=== PATIENT | male | born 1995 | race Two or more races ===

== ENCOUNTER 2017-04-11 19:46 | Emergency (ER) | payer SELFPAY ==
[2017-04-11 20:00] VITALS: BP 132/83; PULSE 60; TEMP 98.4; O2SAT 98
--- NOTE | 2017-04-11 20:18 | C.PDOC ---
History Of Present Illness 21yo male, presents to ED with complaints of headache, bodyaches for the past two days. He also reports associated tactile fever, present yesterday for which he took Motrin with no relief. He reports similar symptoms today with associated sore throat. Time Seen by Provider: 04/11/17 20:05 Chief Complaint (Nursing): Headache History Per: Patient History/Exam Limitations: no limitations Onset/Duration Of Symptoms: Days (2) Current Symptoms Are (Timing): Still Present Location Of Pain: Throat, Diffuse Myalgias, Headache Sick Contacts (Context): Individual(s) At Work Associated Symptoms: Fever (tactile) Past Medical History Reviewed: Historical Data, Nursing Documentation, Vital Signs Vital Signs: Last Vital Signs Temp 98.4 F 04/11/17 19:56 Pulse 60 04/11/17 19:56 Resp 20 04/11/17 21:04 BP 132/83 04/11/17 19:56 Pulse Ox 98 04/11/17 20:53 - Medical History PMH: No Chronic Diseases Surgical History: No Surg Hx Family History: States: No Known Family Hx - Social History Hx Tobacco Use: Yes (1 cig daily) Hx Alcohol Use: Yes Hx Substance Use: No - Immunization History Hx Tetanus Toxoid Vaccination: No Hx Influenza Vaccination: No Hx Pneumococcal Vaccination: No Review Of Systems Constitutional: Positive for: Fever (tactile), Other (bodyaches) Eyes: Negative for: Vision Change, Redness ENT: Positive for: Throat Pain. Negative for: Ear Pain Cardiovascular: Negative for: Palpitations Respiratory: Negative for: Cough, Shortness of Breath Gastrointestinal: Negative for: Vomiting, Abdominal Pain, Diarrhea Skin: Negative for: Rash Neurological: Positive for: Headache. Negative for: Weakness, Numbness, Dizziness Physical Exam - Physical Exam Appears: Well, Non-toxic, No Acute Distress Skin: Normal Color, Warm, Dry, No Diaphoretic, No Pale, No Rash Head: Atraumatic, Normacephalic Eye(s): bilateral: Normal Inspection, PERRL, EOMI, Other (no nystagmus) Ear(s): Bilateral: Normal (no erythema) Nose: Normal Oral Mucosa: Moist Throat: Normal, No Erythema, No Exudate, No Drooling, No Mass Neck: Normal ROM, No Midline Cervical Tenderness, No Paracervical Tenderness, Supple Lymphatic: Normal Exam, No Adenopathy Chest: Symmetrical, No Tenderness Cardiovascular: Rhythm Regular, No Murmur Respiratory: Normal Breath Sounds, No Rales, No Rhonchi, No Wheezing Extremity: Bilateral: Atraumatic, Normal ROM Neurological/Psych: Oriented x3, Normal Speech Gait: Steady ED Course And Treatment O2 Sat by Pulse Oximetry: 98 (RA) Pulse Ox Interpretation: Normal Medical Decision Making Medical Decision Making: Impression: Flu like symptoms Plan: * Rapid flu Progress: Flu test was negative On re-eval patient seated comfortably listening with headphones in ear, on his phone. He has no fever and stable vital signs. Inform flu test was negative. Symptoms likely viral. Recommend rest fluids and analgesics as needed for symptoms. Advise gargles and lozenges for throat pain. Instruct patient if symptoms persist over 6-7 day can follow up in the clinic. Disposition Counseled Patient/Family Regarding: Diagnosis, Need For Followup, Rx Given - Disposition Referrals: [facility] [Outside] [facility] [employer] [facility] [Outside] Disposition: HOME/ ROUTINE Disposition Time: 20:52 Condition: GOOD Additional Instructions: You have viral infection. Take Tylenol or Motrin alternating every 4-6 hours for Fever 100.4F or higher. Rest and drink plenty of fluids. May use cool mist humidifier or vaporizer in room. Try taking over the counter antihistamine ( Claritin, Kristel, Zyrtec), Decongestant or and lozenges for throat pain as needed. Follow up with your primary medical doctor or clinic in 1 week for further evaluation if symptoms persist. 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 - Scribe Statement The provider has reviewed the documentation as recorded by the Myron Metz Provider Scribe Attestation: All medical record entries made by the Cristhianibzoya were at my direction and personally dictated by me. I have reviewed the chart and agree that the record accurately reflects my personal performance of the history, physical exam, medical decision making, and the department course for this patient. I have also personally directed, reviewed, and agree with the discharge instructions and disposition.
[2017-04-11 21:04] VITALS: RESP 20
== END 2017-04-11 21:04 | disposition home or self-care (01) ==
LOC: C.ER 19:46 → SUPCPDRO 19:46 → C.ER 21:04
DX: R51 Headache (principal); B34.9 Viral infection, unspecified

== ENCOUNTER 2017-11-15 00:34 | Emergency (ER) | payer SELFPAY ==
[2017-11-15 00:42] VITALS: BP 124/73; PULSE 62; RESP 18; TEMP 97.4; O2SAT 99
--- NOTE | 2017-11-15 01:12 | C.PDOC ---
History Of Present Illness Patient presents to the ER with a complaint of foreign body sensation to the right eye. Patient states he fell asleep wearing nonprescription contact lenses in a hot car and is concerned they might have gotten stuck on his "eyeballs". Denies change in vision. Time Seen by Provider: 11/15/17 01:12 Chief Complaint (Nursing): Eye Problem History Per: Patient History/Exam Limitations: no limitations Onset/Duration Of Symptoms: Hrs Current Symptoms Are (Timing): Still Present Injury To Eye?: No Severity: Mild Pain Scale Rating Of: 2 Quality: Burning Wears Contact Lens?: Yes Associated Symptoms: FB Sensation Recent travel outside of the [place]: No Additional History Per: Patient Past Medical History Reviewed: Historical Data, Nursing Documentation, Vital Signs Vital Signs: Last Vital Signs Temp 97.4 F L 11/15/17 00:49 Pulse 62 11/15/17 00:49 Resp 18 11/15/17 00:49 BP 124/73 11/15/17 00:49 Pulse Ox 99 11/15/17 01:41 Family History: States: No Known Family Hx - Social History Hx Tobacco Use: Yes (1 cig daily) Hx Alcohol Use: Yes Hx Substance Use: No - Immunization History Hx Tetanus Toxoid Vaccination: No Hx Influenza Vaccination: No Hx Pneumococcal Vaccination: No Review Of Systems Eyes: Positive for: Redness. Negative for: Vision Change Physical Exam - Physical Exam Appears: Non-toxic Head: Normacephalic Eye(s): bilateral: PERRL, EOMI, Other (No evidence of foreign object using opthlamoscope, fluorescein apply with no uptake, eyelid eversion was negative for foreign objects) Neurological/Psych: Oriented x3 Gait: Steady ED Course And Treatment O2 Sat by Pulse Oximetry: 99 (Room air) Pulse Ox Interpretation: Normal Progress Note: No evidence of foreign body found, eyes were flushed out, patient reports relief, will discharge with Rx for eyedrops and follow up with ophthalmology. Disposition Counseled Patient/Family Regarding: Studies Performed, Diagnosis, Need For Followup, Rx Given - Disposition Referrals: Phil Carlos [Staff Provider] - Disposition: HOME/ ROUTINE Disposition Time: 01:12 Condition: FAIR Prescriptions: Sulfacetamide Sodium [Bleph 10% Eye Drops] 2 drop OD QID #1 bottle Instructions: Contact Lens Care Forms: [facility] (Kazakh), General Discharge Instructions - Clinical Impression Clinical Impression: Pain in eye, Contact lens stuck - Scribe Statement The provider has reviewed the documentation as recorded by the Scribzoya Cho All medical record entries made by the Scribe were at my direction and personally dictated by me. I have reviewed the chart and agree that the record accurately reflects my personal performance of the history, physical exam, medical decision making, and the department course for this patient. I have also personally directed, reviewed, and agree with the discharge instructions and disposition.
== END 2017-11-15 01:59 | disposition home or self-care (01) ==
LOC: C.ER 00:34
DX: T15.91XA Foreign body on external eye, part unspecified, right eye, initial encounter (principal); X58.XXXA Exposure to other specified factors, initial encounter; H57.11 Ocular pain, right eye; F17.210 Nicotine dependence, cigarettes, uncomplicated